=== PATIENT | female | born 1950 | race Caucasian/White ===

== ENCOUNTER → 2016-10-02 | Outpatient (CLI) | payer OTHER ==
[~2016-10-02] MED LIST: ACETAMINOPHEN PO; ASPIRIN PO; ASPIRIN81 M2 PO; B COMPLEX1 TAB PO; B-COMPLEX1 TAB PO; CALCIUM + D 6001 TA1 PO; CALCIUM 500 +1 EAC2 PO; CALTRATE; CALTRATE 600 W-1 TAB PO; CALTRATE 600+D PO; DISCONTINUED MED PO; FLEXERIL10 M1 PO; FORTEO2.4 ML SQ; HYDROCODON-ACE1 EAC5 PO; HYDROCODONE BIT1 TAB PO; HYDROCODONE-A1 UDTA2 PO; HYDROCODONE-APA1 T54 PO; HYDROCODONE/APA1 T16 PO; IBUPROFEN800 MG PO; INDOMETHACIN25 MG PO; MILK OF MAGNES311 MG PO; MILK OF MAGNESIA PO; MOTRIN400 MG PO; MULTI VITAMIN1 EACH PO; MULTI-DAY1 TAB PO; NICOTINE TRANSD21 MG EXT; NORCO 10-325 TA1 TAB PO; OMEPRAZOLE40 M1 PO; PROPRANOLOL HCL10 M1 PO; VITAMIN D 4001 UDTAB PO; VITAMIN D2000 UNI1 PO; VITAMIN D400 UNI2 PO; VITAMIN D5000 UNIT; [UNRECOGNIZED DRUG - OTHER]; [UNRECOGNIZED DRUG - REMARK] PO
--- NOTE | ~2016-10-02 | CR63 ---
[facility] A Service of [facility] RADIOLOGY TEXT RESULTS PATIENT: ALYSSA BOSS LOCATION: [facility] : 50 UNIT #: [id number] AGE: [address]: Bjorn Lopez MD SEX: F ORDER DR: [id number] [facility] [address] [place], [place] [address] [id number] O MR#: [id number] Acc #: [id number] NAME: ALYSSA BOSS : 1950 SEX: F STUDY DATE/TIME: 10/02/2016 13:41 UNIT: [facility] ROOM: STUDY DESCRIPTION: CR Chest 2 View Attending Physician: Bjorn Lopez M.D. Referring Physician: Bjorn Lopez M.D. Ordering Physician: Bjorn Lopez M.D. Primary Care Physician: Eduardo Wilson M.D. MEDICAL IMAGING REPORT This report is preliminary unless electronic signature is present EXAM Chest 2 views dated 10/02/2016 COMPARISON Chest 2 views dated 12/13/2015 HISTORY Preop evaluation for kyphoplasty today. Shortness of air. FINDINGS 2 views of the chest were obtained. Lungs are hyperinflated in this patient with known asthma. There is a calcified right middle lobe lung nodule, stable and consistent with old granulomatous disease. Kyphoplasty changes are noted at T5, T7, and L1 vertebral bodies. Compression deformities of T11 and T12 are seen which do not appear to have significantly worsened since last year. Heart is of normal size. IMPRESSION No significant interval change when compared to the study from last year. No acute cardiopulmonary disease. Dictated by... Gianna Sinclair M.D. THIS IS AN ELECTRONICALLY VERIFIED REPORT Gianna Sinclair M.D. at 10/03/2016 3:39 PM CPR/rnr TD: 10/02/2016 18:07 JOB #: [id number] [facility] A Service [facility] RADIOLOGY TEXT RESULTS PATIENT: ALYSSA BOSS LOCATION: [facility] #: [id number] : [birth year] UNIT #: [id number] AGE: [address]: Bjorn Lopez MD SEX: F ORDER DR: MEDICAL IMAGING REPORT COPY
--- NOTE | ~2016-10-02 | EKG ---
PATIENT: ALYSSA BOSS UNIT #: [id number] Ventricular Rate: 72 BPM Atrial Rate: 72 BPM P-R Interval: 126 ms QRS Duration: 78 ms Q-T Interval: 394 ms QTC Calculation(Bezet): 431 ms P [place]: 7 degrees Calculated R [place]: 23 degrees Calculated T [place]: 31 degrees Diagnosis Line: Normal sinus rhythm Diagnosis Line: Normal ECG Diagnosis Line: When compared with ECG of 02-AUG-2015 14:29, Diagnosis Line: No significant change was found Diagnosis Line: Confirmed by DELANEY HAQ MD ([id number]) on 10/02/2016 Diagnosis Line: 6:26:20 PM INTERPRETING MD: EUN SEGOVIA
[2016-10-02 14:11] LABS: URINE APPEARANCE CLOUDY; URINE BILIRUBIN NEG (NEG); URINE BLOOD NEG (NEG); URINE COLOR YELLOW; URINE GLUCOSE NEG (NEG); URINE KETONE NEG (NEG); URINE LEUKOCYTE ESTERASE TRACE (NEG); URINE NITRATE NEG (NEG); URINE PROTEIN NEG (NEG); URINE SPECIFIC GRAVITY 1.023 (1.003-1.035)
[2016-10-02 14:13] LABS: CULTURE INDICATED? YES; U HYALINE CASTS AUWI 0-2 /[LPF]; URINE BACTERIA AUWI 1+ (NEGATIVE); URINE SQUAMOUS EPITHELIAL CELL MOD /[HPF]
[2016-10-02 14:14] LABS: HEMATOCRIT 39.4 % (35.0-45.0); HEMOGLOBIN 13.3 gm/dL (12.0-16.0); MEAN CELL VOLUME 91.4 FL (83-96); MEAN CORPUSCULAR HEMOGLOBIN 30.8 PG (28-34); MEAN CORPUSCULAR HGB CONC 33.7 g/dL (30-36); MEAN PLATELET VOLUME 7.7 FL (6.5-11.5); RED BLOOD COUNT 4.31 X10e (3.90-5.30); RED CELL DISTRIBUTION WIDTH 14.2 % (11.0-15.5); WHITE BLOOD COUNT 10.7 X10e3 (4.0-10.5)
[2016-10-02 14:38] LABS: BLOOD UREA NITROGEN 16 mg/dL (9-23); BUN/CREATININE RATIO 22.85; CARBON DIOXIDE 25 mmol/L (22-31); CHLORIDE 102 mmol/L (100-111); CREATININE SERUM 0.7 mg/dL (0.6-1.4); GLOM FILT RATE Estimated ABOVE60 mL/min (>60); GLUCOSE FASTING 146 mg/dL (70-110); POTASSIUM 4.4 mmol/L (3.5-5.1); SODIUM 136 mmol/L (135-145)
[2016-10-02 14:58] LABS: PARTIAL THROMBOPLASTIN TIME 25.2 SECONDS (23.5-31.3)
== END | disposition home or self-care (01) ==
LOC: CAMB 12:06
PROVIDERS: Orthopaedic Surgery Orthopaedic Surgery of the Spine
DX: Z01.818 Encounter for other preprocedural examination (principal); M54.6 Pain in thoracic spine
CPT/HCPCS: 36415; 71020; 80048; 81003; 85027; 85610; 85730; 87086; 93005

== ENCOUNTER → 2016-10-07 | Day surgery (SDC) | payer OTHER ==
--- NOTE | ~2016-10-07 | CR242 ---
[facility] A Service of [facility] & [facility] RADIOLOGY TEXT RESULTS PATIENT: ALYSSA BSOS LOCATION: [facility] : 50 UNIT #: [id number] AGE: [address]: Bjorn Lopez MD SEX: F ORDER DR: [id number] [facility] [address] [place], [place] [address] [id number] O MR#: [id number] Acc #: [id number] NAME: ALYSSA BOSS : 1950 SEX: F STUDY DATE/TIME: 10/07/2016 14:11 UNIT: [facility] ROOM: STUDY DESCRIPTION: CR Thoracic Spine 2 Views Attending Physician: Bjorn Lopez M.D. Referring Physician: Bjorn Lopez M.D. Ordering Physician: Bjorn Lopez M.D. Primary Care Physician: Eduardo Wilson M.D. MEDICAL IMAGING REPORT This report is preliminary unless electronic signature is present EXAM Thoracic spine INDICATIONS Intraoperative imaging during kyphoplasty. FINDINGS Fluoroscopy time 90 seconds. Total of 3 images were submitted and they show that vertebroplasty has been done at 2 levels that are separate at 1 mildly compressed to the body. There is no way to count the vertebral bodies on these coned-down images. Dictated by... Ronald Elizabeth M.D. THIS IS AN ELECTRONICALLY VERIFIED REPORT Ronald Elizabeth M.D. at 10/08/2016 7:17 AM FEL/pcl TD: 10/07/2016 20:45 JOB #: [id number] MEDICAL IMAGING REPORT COPY
--- NOTE | ~2016-10-07 | HP ---
Unit #: [id number] #: [id number] Patient: ALYSSA BOSS [id number] [address] [address] [id number] O MR#: [id number] NAME: ALYSSA BOSS. ROOM: Age: Sex: F Admission Date: 10/07/2016 : 1950 Attending Physician: Bjorn Lopez M.D. Referring Physician: Bjorn Lopez M.D. Primary Care Physician: Eduardo Wilson M.D. HISTORY AND PHYSICAL DATE OF ANTICIPATED ADMISSION/PROCEDURE October 07, 2016 CHIEF COMPLAINT Low back pain. HISTORY OF PRESENT ILLNESS The patient is a 66-year-old female who suffers with osteoporosis. She had a recent increase in back pain. An MRI showed the presence of a new fracture at T11, and she is admitted for surgery. PAST MEDICAL HISTORY 1. Chronic obstructive pulmonary disease. 2. Emphysema. 3. Multiple sclerosis. 4. Migraine headaches. 5. Osteoporosis. 6. Rheumatoid arthritis. 7. Anxiety. PAST SURGICAL HISTORY 1. Multiple kyphoplasties. 2. Hysterectomy and oophorectomy. ALLERGIES CHANTIX. MEDICATIONS 1. Gabapentin. 2. Mirtazapine. 3. Percocet. 4. Propranolol. 5. Calcium. FAMILY HISTORY Osteoporosis, COPD, depression, and alcohol abuse. SOCIAL HISTORY The patient is an occasional smoker and nondrinker. REVIEW OF SYSTEMS A 14-point review of systems is negative. PHYSICAL EXAMINATION Unit #: [id number] #: [id number] Patient: ALYSSA BOSS VITAL SIGNS: She is 5 feet 7 and 141 pounds. Vital signs are stable. LUNGS: Clear to auscultation bilaterally. HEART: Regular rate and rhythm. ABDOMEN: Soft and nontender. BACK: Thoracic spine is tender to palpation. EXTREMITIES: She does not have any motor or sensory deficits in her upper or lower extremities. DIAGNOSTIC STUDIES IMAGING: MRI demonstrates the presence of an acute to subacute fracture of T11. CLINICAL IMPRESSION 1. Osteoporosis. 2. Osteoporotic T11 compression fracture. RECOMMENDATIONS Kyphoplasty. The patient is aware of the risks of complications. She has had this procedure before at T5 and T7 and at L1. This will be done as an outpatient. Dictated by Bjorn Hernan Bauer TD: 10/06/2016 19:14 JOB #: [id number] HISTORY AND PHYSICAL X Bjorn Lopez MD X HISTORY AND PHYSICAL
--- NOTE | ~2016-10-07 | OR ---
Unit #: [id number] #: [id number] Patient: ALYSSA BOSS [id number] [address] [place], [place] [address] [id number] O MR#: [id number] NAME: ALYSSA BOSS ROOM: Date of Procedure: 10/07/2016 Admission Date: 10/07/2016 Surgeon: Bjorn Lopez M.D. : 1950 Attending Physician: Bjorn Lopez M.D. Referring Physician: Bjorn Lopez M.D. Primary Care Physician: Eduardo Wilson M.D. PROCEDURE OPERATIVE NOTE PREOPERATIVE DIAGNOSES 1. Osteoporosis. 2. T11 osteoporotic compression fracture. POSTOPERATIVE DIAGNOSES 1. Osteoporosis. 2. T11 osteoporotic compression fracture. PROCEDURE PERFORMED T11 kyphoplasty and biopsy ([id number]). ANESTHESIA Dr. Wiliam Tavarez, general endotracheal. ESTIMATED BLOOD LOSS Minimal. SPECIMENS T11 to Pathology. DRAINS None. COMPLICATIONS None. INDICATIONS The patient is a 66-year-old female who suffers with osteoporosis. She is admitted for kyphoplasty. She is well aware of the risk of complications and the difficulty of predicting a specific outcome. DESCRIPTION OF PROCEDURE Patient was taken to surgery. After successful anesthesia, she was placed prone on well-padded bolsters on a Lonnie frame with all bony prominences well padded. The back was prepped and draped in the usual sterile fashion. Under biplanar fluoroscopy, the T11 pedicles were localized with biplanar fluoroscopy and spinal needles. A few small stab incisions were made after infiltration of 0.5% Marcaine with epinephrine. The working cannulas were then advanced within the vertebral body of T12 on both sides. The working cannulas had excellent position. Biopsy material was obtained from each side and sent labeled T11 for pathologic examination. Next, balloons were placed. These were 15 mm balloons. These were inflated on both sides and had good position within the vertebral body of Unit #: [id number] #: [id number] Patient: ALYSSA BOSS T11. These were then deflated and withdrawn and methacrylate was slowly injected under live lateral fluoroscopic imaging. The methacrylate had good position within the vertebral body of T11. It was allowed to cure and harden whereupon the working cannulas were removed. Final images demonstrating the position of the methacrylate within the vertebral body of T11 were saved for permanent copy in two planes. The wounds were then closed with Dermabond, Telfa, and Tegaderm dressing. The patient was turned supine, extubated, and taken stable to recovery. Postoperative plan includes discharge. She was given a prescription for Percocet. She should remove her surgical dressing in two days and call the office for any problems or concerns that arise prior to her followup with me in two to three weeks. Dictated by... Hernan Pereira/noemi TD: 10/07/2016 19:01 JOB #: [id number] PROCEDURE OPERATIVE NOTE X Bjorn Lopez MD X PROCEDURE OPERATIVE NOTE
[2016-10-07 13:02] LABS: URINE SOURCE CLEAN CATCH
[2016-10-07 13:08] LABS: URINE APPEARANCE CLOUDY; URINE BILIRUBIN NEG (NEG); URINE BLOOD NEG (NEG); URINE COLOR YELLOW; URINE GLUCOSE NEG (NEG); URINE KETONE NEG (NEG); URINE LEUKOCYTE ESTERASE TRACE (NEG); URINE NITRATE NEG (NEG); URINE PROTEIN NEG (NEG); URINE UROBILINOGEN 0.2 MG/DL (NEG)
[2016-10-07 13:11] LABS: CULTURE INDICATED? YES; U HYALINE CASTS AUWI 0-2 /[LPF]; URINE BACTERIA AUWI 1+ (NEGATIVE); URINE SQUAMOUS EPITHELIAL CELL MOD /[HPF]
== END | disposition home or self-care (01) ==
LOC: CSUR 11:24
PROVIDERS: Orthopaedic Surgery Orthopaedic Surgery of the Spine
DX: M80.08XA Age-related osteoporosis with current pathological fracture, vertebra(e), initial encounter for fracture (principal); J44.9 Chronic obstructive pulmonary disease, unspecified; G89.29 Other chronic pain; M54.9 Dorsalgia, unspecified; Z88.8 Allergy status to other drugs, medicaments and biological substances; Z79.891 Long term (current) use of opiate analgesic; Z79.899 Other long term (current) drug therapy; Z90.710 Acquired absence of both cervix and uterus; Z98.890 Other specified postprocedural states
CPT/HCPCS: 72070; 76000; 81003; 87086; 88307; 88311; C1713; J0330; J0690; J1885; J2405; J3010

== ENCOUNTER → 2016-11-14 | Outpatient (CLI) | payer OTHER ==
--- NOTE | ~2016-11-14 | MR176 ---
[facility] A Service of [facility] & [facility] RADIOLOGY TEXT RESULTS PATIENT: ALYSSA BOSS LOCATION: [facility] : 50 UNIT #: [id number] AGE: [address]: Bjorn Lopez MD SEX: F ORDER DR: [id number] [facility] [address] [place], [place] [address] [id number] O MR#: [id number] Acc #: [id number] NAME: ALYSSA BOSS. : 1950 SEX: F STUDY DATE/TIME: 11/14/2016 13:47 UNIT: [facility] ROOM: STUDY DESCRIPTION: MR Thoracic Wo Contrast Attending Physician: Bjorn Lopez M.D. Referring Physician: Bjorn Lopez M.D. Ordering Physician: Bjorn Lopez M.D. Primary Care Physician: Eduardo Wilson M.D. MRI CENTER REPORT This report is preliminary unless electronic signature is present. EXAM MRI of the thoracic spine without contrast dated 11/14/2016. COMPARISON MRI of the thoracic spine without contrast dated 09/04/2016. HISTORY Mid back pain, osteoporosis, multiple fractures. History kyphoplasty with the last one 3-4 years ago. FINDINGS The study was done on 11/14/2016. The current study is given to me for dictation along with complete history and comparison on 11/25/2016. Kyphoplasty changes are noted in the T5, T7, T11, L1 vertebral bodies. There is also chronic compression deformity of T12 with more than 70% loss of height without kyphoplasty. Mild posterior-superior retropulsion of fracture fragment is noted into the canal and T12 causing borderline size to mild canal stenosis. No significant edema is noted in the remaining vertebral bodies to suggest new fracture. There is mild superior endplate compression deformity of T7 with about 10% to 20% loss of height, chronic. Degenerative disc disease is seen at multiple levels of the thoracic spine. Tiny T7-8 central protrusion is noted which was better seen on the prior study. There are mild bilateral facet changes noted at T10-T11, stable when compared to the prior study. It causes mild mass effect on the adjacent thecal sac without cord compression or canal stenosis. It is also noted at T11-T12 levels. There is punctate and prominent central canal noted at the level of the T12 measuring less than 2 mm. Stable. The retroperitoneum demonstrates 1 cm increased T2-signal lesion in the anterior mid-right kidney, stable. It is incompletely characterized on the current study. [facility] A Service of [facility] RADIOLOGY TEXT RESULTS PATIENT: ALYSSA BOSS [facility] : 50 UNIT #: [id number] AGE: [address]: Bjorn Lopez MD SEX: F ORDER DR: 1. Kyphoplasty changes are at T5, T7, T11 and L1. 2. Compression deformities are at T6 (10% to 20%) and T12 (about 70%) without intervention. Mild retropulsion of posterior-superior fragments of T12 is noted with mild canal stenosis. 3. Degenerative disc disease is at multiple levels, slightly worse at T7-T8 with small central protrusion, stable. 4. No significant neural foraminal narrowing. 5. Facet hypertrophic changes are noted in the lower lumbar spine probably at T10-T11, stable. It causes mild mass effect on the adjacent thecal sac. It is also noted at T11-T12. 6. 1 cm increased T2-signal lesion is noted in the anterolateral mid-right kidney, incompletely characterized on the current study. Refer to CT abdomen and pelvis with contrast from 12/25/2015 which demonstrates bilateral renal cysts. Dictated by... Gianna Sinclair M.D. THIS IS AN ELECTRONICALLY VERIFIED REPORT Gianna Sinclair M.D. at 11/26/2016 3:04 PM CPR/pcl TD: 11/25/2016 16:50 JOB #: [id number] MRI CENTER REPORT Page 1 of 1 COPY
== END | disposition home or self-care (01) ==
LOC: CMRI 11:54
DX: M80.88XA Other osteoporosis with current pathological fracture, vertebra(e), initial encounter for fracture (principal)
CPT/HCPCS: 72146

== ENCOUNTER → 2017-01-27 | Day surgery (SDC) | payer OTHER ==
--- NOTE | ~2017-01-27 | OR ---
Unit #: [id number] #: [id number] Patient: ALYSSA BOSS [id number] [address] [address] [id number] O MR#: [id number] NAME: ALYSSA BOSS. ROOM: Date of Procedure: 01/27/2017 Admission Date: 01/27/2017 Surgeon: Chau Falcon M.D. : 1950 Attending Physician: Chau Falcon M.D. Primary Care Physician: Eduardo Wilson M.D. OPERATIVE REPORT PREOPERATIVE DIAGNOSES 1. Epigastric pain. 2. Constipation. POSTOPERATIVE DIAGNOSES 1. Epigastric pain. 2. Constipation. PROCEDURES PERFORMED 1. Esophagogastroduodenoscopy. 2. Biopsy of antrum for Helicobacter pylori testing. 3. Colonoscopy to cecum. ANESTHESIA Monitored anesthesia care. FINDINGS The patient was found to have mild gastritis as well as mild distal esophagitis and a small hiatal hernia. On colonoscopy, the patient had normal colon except for a rare shallow sigmoid diverticulum and a tortuous colon. SPECIMENS Sent to pathology. COMPLICATIONS None apparent. CONDITION The patient tolerated the procedure well. INDICATIONS FOR PROCEDURE The patient is a 66-year-old white female, who has had epigastric pain as well as chronic constipation. She presents at this time for evaluation by upper and lower endoscopy. DESCRIPTION OF PROCEDURE After obtaining informed consent, the patient was brought to the endoscopy suite and after adequate monitored anesthesia care, had the endoscope placed through the mouth into the upper esophagus under direct vision. It was advanced slowly to the level of the second and third portion of the duodenum without difficulty and with the lumen always in view. The Unit #: [id number] #: [id number] Patient: ALYSSA BOSS duodenum was normal as was the duodenal bulb. The pylorus opened normally. There was some mild distal gastritis present and a biopsy was obtained for Helicobacter pylori testing. On retroflexion back to the GE junction, there was a small hiatal hernia seen. No other abnormalities were found in the proximal third, middle third, or incisura. On pulling back above the GE junction, the patient was found to have some mild distal esophagitis. The remaining portion of the esophagus was within normal limits. Laryngeal structures were grossly normal as viewed from above. At this point in time, the colonoscope was placed through the anus and slowly advanced to the level of the cecum without difficulty with the lumen always in view. The patient had a somewhat poor prep; however, we were able to irrigate and suction out the vast majority of the thick green liquid. The patient had a very tortuous colon. On pulling back from the cecum, the cecum was within normal limits as was the ileocecal valve. The ascending colon was normal as was the hepatic flexure, transverse colon, splenic flexure, and descending colon. In the sigmoid colon, there was a rare shallow sigmoid diverticulum. They were not very numerous. Other than this, there was no other abnormality seen. The rectosigmoid and rectum were all within normal limits. On retroflexing in the rectum to the anorectal junction, there was no abnormality seen. The scope was removed without difficulty. The patient tolerated the procedure well and went from the endoscopy suite to recovery area in stable condition. RECOMMENDATIONS Gastroesophageal reflux sheet given. Diverticular sheet given. High-fiber diet, lots of liquids, tucks or wipes p.r.n. Call Thursday for the results of biopsy. Prescription for omeprazole given. Dictated by... Hernan Cruz/kaylie TD: 01/28/2017 00:26 JOB #: [id number] CC: Eduardo Wilson M.D. [facility] OPERATIVE REPORT Page 1 of 1 X Chau Falcon MD X PROCEDURE OPERATIVE NOTE
== END | disposition home or self-care (01) ==
LOC: COPS 05:29
PROVIDERS: Surgery
PROC: 0DB78ZX Excision of Stomach, Pylorus, Via Natural or Artificial Opening Endoscopic, Diagnostic (ICD-10-PCS; principal; 2017-01-27 07:00)
PROC: 0DJD8ZZ Inspection of Lower Intestinal Tract, Via Natural or Artificial Opening Endoscopic (ICD-10-PCS; 2017-01-27 07:00)
DX: K29.70 Gastritis, unspecified, without bleeding (principal); K44.9 Diaphragmatic hernia without obstruction or gangrene; K20.9 Esophagitis, unspecified; K57.30 Diverticulosis of large intestine without perforation or abscess without bleeding; K63.89 Other specified diseases of intestine; K59.09 Other constipation; J43.9 Emphysema, unspecified; M81.0 Age-related osteoporosis without current pathological fracture; M06.9 Rheumatoid arthritis, unspecified; D64.9 Anemia, unspecified; F17.200 Nicotine dependence, unspecified, uncomplicated; Z90.710 Acquired absence of both cervix and uterus; Z79.891 Long term (current) use of opiate analgesic; Z87.09 Personal history of other diseases of the respiratory system; Z86.73 Personal history of transient ischemic attack (TIA), and cerebral infarction without residual deficits; Z87.11 Personal history of peptic ulcer disease; Z98.890 Other specified postprocedural states; Z90.722 Acquired absence of ovaries, bilateral; Z88.8 Allergy status to other drugs, medicaments and biological substances; Z82.62 Family history of osteoporosis; Z82.5 Family history of asthma and other chronic lower respiratory diseases; Z81.1 Family history of alcohol abuse and dependence; Z82.49 Family history of ischemic heart disease and other diseases of the circulatory system; Z80.3 Family history of malignant neoplasm of breast
CPT/HCPCS: 87077; J2250

== ENCOUNTER 2017-02-19 13:48 | Emergency (ER) | payer OTHER ==
[~2017-02-19] VITALS: Ht 170.2 cm; Wt 61.2 kg
--- NOTE | ~2017-02-19 | CT2 ---
[facility] A Service of [facility] / [facility] RADIOLOGY TEXT RESULTS PATIENT: ALYSSA BOSS LOCATION: [facility] : 50 UNIT #: [id number] AGE: [address]: Rodney Chatman MD SEX: F ORDER DR: [id number] [facility] [address] [place], [place] [address] [id number] MR#: [id number] Acc #: [id number] NAME: ALYSSA BOSS. : 1950 SEX: F STUDY DATE/TIME: 02/19/2017 17:44 UNIT: [facility] ROOM: STUDY DESCRIPTION: CT Abd and Pelv W Cont Attending Physician: Rodney Chatman M.D. Ordering Physician: Rodney Chatman M.D. Primary Care Physician: Eduardo Wilson M.D. MEDICAL IMAGING REPORT This report is preliminary unless electronic signature is present EXAM CT abdomen and pelvis with contrast, 02/19/2017 HISTORY 66-year-old female with abdominal pain for [address] abdomen and pelvis, 12/25/2015 TECHNIQUE Helical scan performed through the abdomen and pelvis following administration of oral and IV contrast. Coronal and sagittal reformatted images. This CT exam was performed with one or more of the following radiation dose reduction techniques: Automatic exposure control, adjustment of mA and/or kV according to patient size, and iterative reconstruction. FINDINGS Visualized lung bases again demonstrate emphysema. The liver, spleen, pancreas, gallbladder, both adrenal glands, and both kidneys are unremarkable. Right renal cysts are unchanged. Abdominal aorta normal in course and caliber, without dissection. Small bowel is unremarkable, without obstruction. Appendix is grossly normal. Colon unremarkable. No free fluid or free air. Urinary bladder is unremarkable. Uterus surgically absent. No free pelvic fluid. No acute bony abnormality. Stable L1 kyphoplasty. Partially imaged T11 kyphoplasty. Stable chronic compression fracture T12. IMPRESSION 1. No acute abdominal or pelvic findings. 2. Emphysema. [facility] A Service of [facility] RADIOLOGY TEXT RESULTS PATIENT: ALYSSA BOSS LOCATION: [facility] : 50 UNIT #: [id number] AGE: [address]: Rodney Chatman MD SEX: F ORDER DR: 3. Normal appendix. 4. Hysterectomy. 5. New, partially imaged T11 kyphoplasty. Stable L1 kyphoplasty. Stable chronic compression fracture T12. No acute bony abnormalities. Dictated by... Da Tomlinson M.D. THIS IS AN ELECTRONICALLY VERIFIED REPORT Da Tomlinson M.D. at 02/20/2017 9:59 AM PACHECO/jennifer TD: 02/20/2017 02:04 JOB #: [id number] MEDICAL IMAGING REPORT Page 1 of 1 COPY
--- NOTE | ~2017-02-19 | EKG ---
PATIENT: ALYSSA BOSS UNIT #: [id number] Ventricular Rate: 62 BPM Atrial Rate: 62 BPM P-R Interval: 144 ms QRS Duration: 76 ms Q-T Interval: 458 ms QTC Calculation(Bezet): 464 ms P [place]: 61 degrees Calculated R [place]: 23 degrees Calculated T [place]: 36 degrees Diagnosis Line: Normal sinus rhythm Diagnosis Line: Normal ECG Diagnosis Line: When compared with ECG of 02-OCT-2016 12:22, Diagnosis Line: No significant change was found Diagnosis Line: Confirmed by FANY SCANLON MD ([id number]) on Diagnosis Line: 02/20/2017 7:33:09 AM INTERPRETING MD: CAPO SEGOVIA
[2017-02-19 16:34] LABS: URINE SOURCE CLEAN CATCH
[2017-02-19 16:38] LABS: BASOPHIL% 0.3 % (0-2.5); EOSINOPHIL% 0.5 % (0.0-7.0); HEMATOCRIT 41.6 % (35.0-45.0); HEMOGLOBIN 13.7 gm/dL (12.0-16.0); LYMPHOCYTE# 1.9 X10e3 (1.0-3.5); LYMPHOCYTE% 29.9 % (17.0-45.0); MEAN CORPUSCULAR HEMOGLOBIN 30.2 PG (28-34); MEAN CORPUSCULAR HGB CONC 32.9 g/dL (30-36); MEAN PLATELET VOLUME 7.8 FL (6.5-11.5); MONOCYTE# 0.5 X10e3 (0-1.0); MONOCYTE% 8.5 % (3.0-12.0); NEUTROPHIL# 3.9 X10e3 (1.5-7.1); NEUTROPHIL% 60.8 % (40-75); PLATELET COUNT 242 X10e3 (140-420); RED BLOOD COUNT 4.52 X10e (3.90-5.30); RED CELL DISTRIBUTION WIDTH 14.5 % (11.0-15.5); WHITE BLOOD COUNT 6.4 X10e3 (4.0-10.5)
[2017-02-19 16:39] LABS: URINE APPEARANCE CLEAR; URINE BILIRUBIN NEG (NEG); URINE BLOOD NEG (NEG); URINE COLOR YELLOW; URINE GLUCOSE NEG (NEG); URINE KETONE NEG (NEG); URINE LEUKOCYTE ESTERASE TRACE (NEG); URINE NITRATE NEG (NEG); URINE PH 7.5 (5-8); URINE PROTEIN NEG (NEG); URINE SPECIFIC GRAVITY 1.014 (1.003-1.035); URINE UROBILINOGEN 0.2 MG/DL (NEG)
[2017-02-19 16:41] LABS: URBCS1 AUWI 0-2 /[HPF] (0-2); URINE BACTERIA AUWI NEG (NEGATIVE); URINE SQUAMOUS EPITHELIAL CELL FEW /[HPF]
[2017-02-19 16:44] LABS: DIFF IND NO
[2017-02-19 16:47] LABS: POC - CKMB <1.0 ng/mL (0.0-7.9); POC - TROPONIN <0.05 ng/mL (<=0.05)
[2017-02-19 16:48] LABS: CULTURE INDICATED? NO
[2017-02-19 17:06] LABS: ALBUMIN SERUM 4.2 g/dL (3.5-5.0); BILIRUBIN, DIRECT 0.1 mg/dL (0.0-0.2); BILIRUBIN,INDIRECT 0.9 mg/dL (0.0-0.9); CALCIUM SERUM 8.9 mg/dL (8.4-10.2); CREATININE SERUM 0.7 mg/dL (0.6-1.4); GLOM FILT RATE Estimated 90.3 mL/min (>60); PROTEIN TOTAL SERUM 7.2 g/dL (6.0-8.3)
== END 2017-02-19 19:27 | disposition home or self-care (01) ==
LOC: CED 13:48
PROVIDERS: Emergency Medicine
DX: K59.00 Constipation, unspecified (principal); G89.29 Other chronic pain; M54.9 Dorsalgia, unspecified; J44.9 Chronic obstructive pulmonary disease, unspecified; F17.200 Nicotine dependence, unspecified, uncomplicated; Z90.710 Acquired absence of both cervix and uterus; Z86.73 Personal history of transient ischemic attack (TIA), and cerebral infarction without residual deficits; Z88.1 Allergy status to other antibiotic agents; Z79.899 Other long term (current) drug therapy
CPT/HCPCS: 36415; 74177; 80048; 80076; 81003; 82150; 82553; 83690; 84484; 85025; 93005; 96361; 96374; 96375; 99284; J2270; J2405; Q9967

== ENCOUNTER → 2017-04-08 | Outpatient (CLI) | payer OTHER ==
--- NOTE | ~2017-04-08 | US5 ---
[facility] A Service of [facility] RADIOLOGY TEXT RESULTS PATIENT: ALYSSA BOSS LOCATION: [facility] : 50 UNIT #: [id number] AGE: [address]: Chau Falcon MD SEX: F ORDER DR: [id number] [facility] [address] [place], [place] [address] [id number] O MR#: [id number] Acc #: [id number] NAME: ALYSSA BOSS : 1950 SEX: F STUDY DATE/TIME: 04/08/2017 8:21 UNIT: [facility] ROOM: STUDY DESCRIPTION: US Abdominal Complete Attending Physician: Chau Falcon M.D. Referring Physician: Chau Falcon M.D. Ordering Physician: Chau Falcon M.D. Primary Care Physician: Eduardo Wilson M.D. MEDICAL IMAGING REPORT This report is preliminary unless electronic signature is present EXAM Abdominal ultrasound complete, 04/08/2017 HISTORY Generalized abdominal pain for 6 months. No known injury. FINDINGS The liver is homogeneous in echotexture and demonstrates no cystic or solid mass lesions. The intra- and extrahepatic bile ducts are not dilated. The gallbladder is normal with no evidence of cholelithiasis, wall thickening or pericholecystic fluid. The common duct measures 4 mm. The pancreas and spleen are normal. The spleen measures 8.9 cm in greatest diameter. The visualized portions of the abdominal aorta and inferior vena cava are within normal limits. There is a 1.5 cm cyst on the right kidney. The left kidney is normal. IMPRESSION 1. Normal gallbladder. 2. Right renal cyst. Dictated by... Jayesh Chiang M.D. THIS IS AN ELECTRONICALLY VERIFIED REPORT Jayesh Chiang M.D. at 04/10/2017 7:45 AM JM/eli TD: 04/09/2017 00:08 JOB #: [id number] [facility] A Service of [facility] RADIOLOGY TEXT RESULTS PATIENT: ALYSSA BOSS LOCATION: [facility] #: [id number] : [birth year] UNIT #: [id number] AGE: [address]: Chau Falcon MD SEX: F ORDER DR: MEDICAL IMAGING REPORT Page 1 of 1 COPY
== END | disposition home or self-care (01) ==
LOC: CGUS 07:40
DX: R10.13 Epigastric pain (principal); N28.1 Cyst of kidney, acquired
CPT/HCPCS: 76700